=== PATIENT | male | born 1945 | race Caucasian/White ===

== ENCOUNTER → 2019-04-21 | Outpatient (CLI) | payer MEDICARE ==
[~2019-04-21] MED LIST: AMLO-150 PO; ATOR20TA37 PO; FENTANYL PF 100 MCG/2ML ONE; FLUMAZENIL 0.1 MG/1 ML, 5ML ONE; FLUT1DIS IH; GADOBUTROL 7.5 MMOL/7.5 ML PFS ONE; LISI40TA PO; METF500T17 PO; MIDAZOLAM 1 MG/ML, 5ML ONE; NALOXONE 1 MG/ML, 2ML ONE; OMEP-110 PO; SITA100T PO
== END | disposition home or self-care (01) ==
LOC: RAD 11:51
PROVIDERS: ATTEND Physician Assistant
DX: H53.9 Unspecified visual disturbance (principal); R42 Dizziness and giddiness
CPT/HCPCS: 70543; 70553; 99156; 99157; A9585; J2250; J3010; J2310